=== PATIENT | male | born 1995 | race Caucasian/White ===

== ENCOUNTER 2020-12-07 18:59 | Emergency (ER) | payer OTHER, SELFPAY ==
[2020-12-07 19:14] VITALS: BP 143/84; PULSE 82; RESP 18; TEMP 36.2; O2SAT 100
--- NOTE | 2020-12-07 19:36 | ED.EYEPROB ---
HPI - Eye Problem General Chief complaint: Eye Problems Stated complaint: left eye swelling Time Seen by Provider: 12/07/20 19:36 Source: patient and RN notes reviewed Mode of arrival: ambulatory Limitations: no limitations History of Present Illness HPI Narrative: 25 year old male presents to express care with swelling and redness of his left eye since last night with increase watering of eye noted. Patient has swelling under left eye and also swelling and redness of left lower eye lid with raised red blister type of lesion noted to medial aspect of his left lower eyelid. Patient does wear glasses with visual acuity: left eye 20/25, right eye 20/20 with glasses, denies any contact lens use. Patient denies any trauma or feeling of foreign body to his left eye. MD chief complaint: eye redness and other (swelling under left eye and along lower lid) Onset (ago): day(s) (last night) Onset description: gradual Duration: constant Location: left eye Eye Symptoms: redness, pain and other (swelling) Mechanism: none Severity: moderate Severity scale (1-10): 4 If Pain, Quality: aching Associated symptoms: none Treatments Prior to Arrival: none Related Data Patient tetanus UTD: Yes Allergies Allergy/AdvReac Type Severity Reaction Status Date / Time amoxicillin Allergy Unknown Verified 12/07/20 19:13 Review of Systems Review of Systems: Narrative: CONSTITUTIONAL: Denies fever, chills, or sweats. EYES: Denies visual changes, redness and swelling under his left eye and along lower lid with increase watering of eye ENT: Denies rhinorrhea, congestion, sore throat, or otalgia. CARDIOVASCULAR: Denies chest pain, palpitations, or edema. RESPIRATORY: Denies cough or dyspnea. GASTROINTESTINAL: Denies abdominal pain, nausea, vomiting, or diarrhea. GENITOURINARY: Denies dysuria or hematuria. SKIN: Denies rash or itching. MUSCULOSKELETAL: Denies back pain, joint pain, or myalgia. NEUROLOGIC: Denies headache, numbness, or weakness. PSYCHIATRIC: Denies anxiety or depression. All systems reviewed & are unremarkable except as noted in HPI and below PMFSH Past Medical History Medical History (Updated 12/08/20 @ 09:14 by Elsie Gandhi NP) Allergic dermatitis due to poison lester Strep throat Surgical History Surgical History (Updated 12/08/20 @ 09:14 by Elsie Gandhi NP) No history of previous surgery Family History Family History (Updated 12/08/20 @ 09:15 by Elsie Gandhi NP) Grandparent Diabetes mellitus Hypertension Social History Social History (Updated 12/08/20 @ 09:15 by Elsie Gandhi NP) Smoking status: Never smoker Alcohol intake: former Substance use: never Living arrangements: with family Gender identity (if verbalized by the patient): Male Comments At time of signature, agree with nursing past medical, surgical, social and family history. There is no relevant family history pertinent to the presenting complaint Exam Narrative: Exam Narrative: GENERAL: Well-appearing, well-nourished, and in no acute distress. HEAD: Normocephalic, atraumatic. EYES: PERRLA and EOMI, red raised blister type lesion noted on left lower eyelid medial aspect, no sclera redness noted or any purulent drainage. Patient has some swelling under left eye with redness along eye lid area, No visual changes patient does wear glasses, no contact lens use. ENT: Nares clear, no rhinorrhea or epistaxis. Mucous membranes moist. NECK: Supple.no lymphadenopathy CHEST: Clear to auscultation. No respiratory distress.SAO2 100% on room air HEART: Regular rate and rhythm. No murmur heard. Normal peripheral pulses. ABDOMEN: Soft, nontender, nondistended, normal active bowel sounds. EXTREMITIES: Normal range of motion. No edema. SKIN: Warm, dry, no rash. NEURO: No focal deficits. Alert and oriented x3. Course Vital Signs Vital signs: Vital Signs Temperature 36.2 C L 12/07/20 19:14 Pulse Rate 82 12/07/20 19:14 Respiratory Rate 1
[2020-12-07 20:00] VITALS: BP 143/84; PULSE 82; RESP 18; TEMP 36.2; O2SAT 100
== END 2020-12-07 20:02 | disposition home or self-care (01) ==
PROVIDERS: Emergency Provider Registered Nurse; PCP Family Medicine Adolescent Medicine
DX: H00.015 Hordeolum externum left lower eyelid (principal)
CPT/HCPCS: 99213; G0463

== ENCOUNTER 2022-12-10 11:46 | Emergency (ER) | payer OTHER, SELFPAY ==
[2022-12-10 12:10] VITALS: BP 142/81; PULSE 83; RESP 16; TEMP 37.2; O2SAT 99
--- NOTE | 2022-12-10 12:54 | ED.URI ---
HPI - URI/Sore Throat General Chief Complaint: Upper Respiratory Infection Stated Complaint: sore throat Time Seen by Provider: 12/10/22 12:54 History of Present Illness HPI Narrative: 27-year-old male presented for complaint of sore throat and sinus congestion over the last few days. States that last night he had painful swallow and has had intermittent headaches and bilateral ear pain. He has been able to tolerate food today. He denies known sick contacts. He has been taking Mucinex for symptoms. Denies shortness of breath, wheezing, nausea, vomiting, diarrhea, fevers or chills. Related Data Allergies Allergy/AdvReac Type Severity Reaction Status Date / Time amoxicillin Allergy Unknown Verified 12/10/22 12:14 Review of Systems Review of Systems: CONSTITUTIONAL: Denies body aches, fever, chills, or sweats. EYES: Denies visual changes, redness, or discharge. ENT: Reports rhinorrhea, congestion, otalgia. CARDIOVASCULAR: Denies chest pain, palpitations, or edema. RESPIRATORY: Denies dyspnea. GASTROINTESTINAL: Denies abdominal pain, nausea, vomiting, or diarrhea. SKIN: Denies rash, itching, or wounds. MUSCULOSKELETAL: Denies back pain, joint pain, or myalgia. [facility] Past Medical History Medical History Allergic dermatitis due to poison lester Strep throat Surgical History Surgical History No history of previous surgery Family History Family History Grandparent Diabetes mellitus Hypertension Social History Social History Smoking status: Never smoker Alcohol intake: former Substance use: never Living arrangements: with family Gender identity (if verbalized by the patient): Male Exam Narrative: GENERAL: well-appearing, no acute distress. EYES: conjunctivae clear ENT: Mucous membranes moist. TMs pearly hutchinson with normal light reflex bilaterally; no tragal tenderness. Oropharynx erythematous without lesions. Tonsils enlarged 1+ and without exudate. No drooling, no hoarseness, no trismus, uvula midline. No tripod positioning, hot potato voice, or soft palate swelling. NECK: Supple. No lymphadenopathy CHEST: Clear to auscultation, breath sounds equal. No respiratory distress, speaks in full sentences. HEART: Regular rate and rhythm. No murmur heard. SKIN: Warm, dry, no rash. NEURO: Alert and oriented x3. Course Course Emergency Course: Patient is aware of diagnosis, understands and agrees to treatment plan. Anticipatory guidance given. Patient agrees to follow-up as directed and is aware of reasons to seek care at the emergency department. Portions of this record may have been created with voice recognition software Level of Care: Express Care Visit Vital Signs Vital signs: Vital Signs Temperature 99.0 F 12/10/22 12:10 Pulse Rate 83 12/10/22 12:10 Respiratory Rate 16 12/10/22 12:10 Blood Pressure 142/81 H 12/10/22 12:10 Pulse Oximetry 99 12/10/22 12:10 Oxygen Delivery Room Air 12/10/22 12:10 Temperature 99.0 F 12/10/22 12:10 Pulse Rate 83 12/10/22 12:10 Respiratory Rate 16 12/10/22 12:10 Blood Pressure 142/81 H 12/10/22 12:10 Pulse Oximetry 99 12/10/22 12:10 Oxygen Delivery Room Air 12/10/22 12:10 MDM - URI/Sore Throat MDM Narrative Medical decision making narrative: strep result reviewed with pt. Advise supportive treatments. Patient is appropriate for outpatient treatment and follow-up. Differential Diagnosis Differential diagnosis: Likely upper respiratory infection, viral infection and pharyngitis Discharge Plan Discharge Clinical Impression: Pharyngitis Patient Disposition: Home, Self-Care Condition: Stable Instructions: Upper Respiratory Infection (ED) Additional Instructions: Rapid stre
== END 2022-12-10 13:07 | disposition home or self-care (01) ==
PROVIDERS: Emergency Provider Nurse Practitioner Family
DX: J02.9 Acute pharyngitis, unspecified (principal)
CPT/HCPCS: 87081; 87880; 99213; G0463